=== PATIENT | female | born 1960 | race Caucasian/White ===

== ENCOUNTER 2017-03-26 10:01 | Emergency (ER) | payer BC ==
[2017-03-26] MEDS ORDERED: NS 0.9% 1000 ML* 1,000 ML IV ONE (11:05)
[2017-03-26] MEDS ORDERED: Morphine INJ* 4 MG/ML 1 ML CARPUJECT IV ONE ×2 (11:30→13:28)
[2017-03-26] MEDS ORDERED: Ondansetron INJ* 2 MG/ML VIAL IV ONE ×2 (11:31→13:28)
[2017-03-26 11:35] LABS: ABS Basophils 0.1 10^3/ul (0-0.2); ABS Eosinophils 0.2 10^3/ul (0-0.6); ABS Lymphocytes 1.3 10^3/ul (1.0-4.8); ABS Monocytes 0.6 10^3/ul (0-0.8); ABS Neutrophils 4.9 10^3/ul (1.5-7.7); ABS Nucleated RBC 0 10^3/ul; Eosinophil % 2.6 % (0-6); Hematocrit 41 % (35-47); Hemoglobin 13.9 g/dl (12.0-16.0); Lymphocyte % 18.3 % (25-47); Mean Corpuscular HGB Conc 34 g/dl (31-36); Mean Corpuscular Hemoglobin 28 pg (27-31); Mean Corpuscular Volume 82 fL (80-97); Mean Platelet Volume 9 um3 (7.4-10.4); Nucleated Red Blood Cells % 0.1; Platelet Count 266 10^3/ul (150-450); Red Blood Count 4.97 10^6/ul (4.0-5.4); Red Cell Distribution Width 13 % (10.5-15)
[2017-03-26 11:43] LABS: INR 0.99 (0.77-1.02)
[2017-03-26 11:54] LABS: EGFR Non-African American 71.6 (>60)
--- NOTE | 2017-03-26 12:30 | RAD ---
Indication: Right upper quadrant pain. Real-time sonography of the right upper quadrant was performed. The liver is normal in size. No focal lesions or intrahepatic duct dilatation is noted. The gallbladder demonstrates a small nonshadowing echogenic foci thigh in a nondependent portion of the gallbladder measuring 6 mm likely representing a small cholesterol polyp. No pericholecystic fluid or wall thickening is noted. Common duct measures 5 mm. Right kidney measures 10.1 x 5.3 x 4.7 cm. The visualized pancreas is otherwise unremarkable. IMPRESSION: Probable polyp in the gallbladder neck. No evidence of biliary duct dilatation is noted.
[2017-03-26 14:01] LABS: Urine Appearance Clear; Urine Blood Negative (Negative); Urine Color Yellow; Urine Ketones Negative (Negative); Urine Protein Negative (Negative); Urine Urobilinogen Negative (Negative)
[2017-03-26 14:48] VITALS: BP 126/69
--- NOTE | 2017-03-27 00:03 | CONS ---
CC: Antonio Delarosa MD CONSULTATION REPORT: DATE OF CONSULTATION: 03/26/17 CHIEF COMPLAINT: Abdominal pain. HISTORY OF PRESENT ILLNESS: The patient is a 56-year-old female who was awakened from sleep around 5 :30 this morning with intense right upper quadrant abdominal pain. It is also in the epigastrium and goes through to the back. She has never had anything like this before. She had may be some queasin ess. No nausea. No vomiting. No fever. No chills. No change in the stool or urine. No recent ac cident, injury, or trauma. PAST MEDICAL HISTORY: She is usually reasonably healthy with no chronic illnesses. PAST SURGICAL HISTORY: She has not had previous major surgeries. MEDICATIONS: Her only medication is hormone replacement therapy. ALLERGIES: She denies medical allergies. SOCIAL HISTORY: She is here with her . She is a nonsmoker, occasional drinker. She is curre ntly between jobs, but has worked in [employer]. FAMILY HISTORY: Reveals ovarian cancer in the sister. No bleeding tendencies or anesthesia reaction s. She has no gallbladder problems. REVIEW OF SYSTEMS: Multi system review is benign. No chest pain, angina, or irregular heartbeat. N o emphysema or bronchitis. No previous kidney stones or chronic urinary problems. No hepatitis or j aundice. No diabetes, thyroid or other endocrine. No Crohn's disease, colitis, or other bowel histo ry. No peptic ulcer disease. No major gynecologic history. No neuromuscular psych issues. PHYSICAL EXAMINATION: She is well-developed, well-nourished female consistent with stated age. Skin is warm and perfused. She is not diaphoretic. She is not jaundiced. Neck is without any adenopath y. Lungs are clear bilaterally. Breasts exam is deferred. Heart is regular without any abnormal so unds. Abdomen is soft and tender in the right subcostal region with a mild Veloz sign. No guarding . No rebound tenderness. No palpable masses or hernias. Extremities are well perfused and without edema. LABORATORY DATA/DIAGNOSTIC STUDIES: Laboratory studies revealed normal white blood count, normal hem oglobin, normal platelet count, normal coagulation. Electrolytes, creatinine, liver function, and li pase were all normal. Urinalysis normal. Her gallbladder ultrasound shows a 6 mm cholesterol polyp in the gallbladder, no acute inflammatory c hange, no ductal dilatation. IMPRESSION: A 56-year-old female with signs and symptoms consistent with biliary colic. I discussed this at length with her and with her and she thinks she would like to try to go h ome and there is nothing in her chemistries or her exam that make that problematic. I have given my card and she understands that if this attack does not resolve or should she start to develop fever or change in color of stool or urine, she should give me a call and we may need to see her back urgentl y. Otherwise, she can follow up in the office electively. Furthermore, if the attack abates quickly and she has no further attacks given that this is a one time event and there is nothing very impressi ve on her chemistries, we could defer surgery and see whether she can control it with diet. All of t cecilir questions have been answered and she will call us if she has any questions or concerns. [id number]/[facility] #: [id number]
== END 2017-03-26 14:57 | disposition home or self-care (01) ==
LOC: ED 10:01
DX: R10.9 Unspecified abdominal pain (principal); K80.50 Calculus of bile duct without cholangitis or cholecystitis without obstruction
CPT/HCPCS: 36415; 76705; 80053; 81003; 81015; 82150; 82550; 83605; 83690; 83735; 83880; 84484; 85025; 85610; 85730; 86140; 87086; 93005; 96374; 96375; 99283; J2270; J2405

== ENCOUNTER 2017-04-21 06:04 | Day surgery (SDC) | payer BC ==
[~2017-04-21 06:04] MED LIST: Buffered Lidocaine 0.9% SYRIN* 5 ML/SYR SYRINGE INTRADERM ONE; Famotidine IV* 10 MG/ML 2 ML (20 mg) IV ONE; Metoclopramide TAB* 10 MG PO ONE
[2017-04-21] MEDS ORDERED: Metoclopramide TAB* 10 MG ONE (06:17)
[2017-04-21] MEDS ORDERED: ceFAZolin 2 GM PREMIX (*) 2 GM/50 ML BAG IVPB ONE (06:17)
[2017-04-21] MEDS ORDERED: Famotidine IV* 10 MG/ML 2 ML (20 mg) ONE (06:17)
[2017-04-21] MEDS ORDERED: Ketorolac INJ* 30 MG/ML 1 ML VIAL ONE ×2 (06:17→07:19)
[2017-04-21] MEDS ORDERED: Buffered Lidocaine 0.9% SYRIN* 5 ML/SYR SYRINGE ONE (06:18)
[2017-04-21] MEDS ORDERED: Bupivacaine 0.25% SDV* 30 ML ONE (07:11)
[2017-04-21] MEDS ORDERED: Lidocaine 2% PF * 5 ML VIAL ONE (07:19)
[2017-04-21] MEDS ORDERED: Propofol* 10 MG/ML 20 ML BTL IV PUSH ONE (07:19)
[2017-04-21] MEDS ORDERED: fentaNYL* 50 MCG/ML 2 ML VIAL (100 MCG VIAL) ONE ×2 (07:19→09:20)
[2017-04-21] MEDS ORDERED: Dexamethasone IV* 4 MG/ML 1 ML (4 MG) ONE (07:19)
[2017-04-21] MEDS ORDERED: Cisatracurium* 2 MG/ML MDV 5 ML ONE (07:19)
[2017-04-21] MEDS ORDERED: Ondansetron INJ* 2 MG/ML VIAL ONE (07:19)
[2017-04-21] MEDS ORDERED: Midazolam* 1 MG/ML 10 ML VIAL (10 MG) ONE (07:19)
[2017-04-21] MEDS ORDERED: EPHEDrine (Pressors)* 50 MG/ML VIAL ONE ×2 (07:54→09:31)
[2017-04-21] MEDS ORDERED: Scopolamine 1.5 mg* PATCH TRANSDERM PRN (08:20)
[2017-04-21] MEDS ORDERED: Ondansetron INJ* 2 MG/ML VIAL IV PRN (08:20)
[2017-04-21] MEDS ORDERED: Naloxone* 0.4 MG/ML 1 ML VIAL IV PRN (08:20)
[2017-04-21] MEDS ORDERED: oxyCODONE/Acetamin 5/325 MG* TAB PO PRN ×2 (08:20→09:07)
[2017-04-21] MEDS ORDERED: Glycopyrrolate IV* 0.2 MG/ML 1 ML VIAL ONE (08:24)
[2017-04-21] MEDS ORDERED: Neostigmine Methylsulfate* 2 MG/2 ML SYRINGE ONE (08:24)
[2017-04-21] MEDS ORDERED: oxyCODONE/Acetamin 5/325 MG* TAB ONE (09:20)
[2017-04-21] MEDS: fentaNYL* 50 MCG/ML 2 ML VIAL (100 MCG VIAL) IV PRN ×2 (09:22→09:31)
[2017-04-21 10:27] VITALS: BP 137/66
--- NOTE | 2017-04-22 07:43 | OP ---
CC: Antonio Delarosa MD. OPERATIVE REPORT: DATE OF OPERATION: 04/21/17 DATE OF : 56 SURGEON: Antonio Delarosa MD. HELP DESK SUPERVISOR: SHAMIR Rose. ANESTHESIOLOGIST: Dr. Lemos. ANESTHESIA: General anesthetic, local infiltration. PRE-OP DIAGNOSIS: Biliary colic. POST-OP DIAGNOSIS: Biliary colic. OPERATIVE PROCEDURE: Laparoscopic cholecystectomy. DESCRIPTION OF PROCEDURE: The patient was supine on the operating room table. After adequate general anesthetic, compression stockings, Ai Hugger warmer and intravenous antibiotics, the abdomen was p repped with antiseptic, draped in sterile fashion. Local infiltrative anesthesia was administered. Small umbilical incision was created. Blunt port cannula was placed. Insufflation was carried out w ith carbon dioxide, additional cannulae 12 mm subxiphoid and 5 mm right upper quadrant right anterior axillary was placed through small stab wounds under direct vision. The gallbladder was tented up, th e areolar tissue was taken down off the cystic duct and cystic artery which were readily clipped and divided. The common duct was readily identified and kept out of harm's way. The gallbladder was ileana en off the liver bed with electrocautery. Hemostasis was excellent. The gallbladder was removed thr ough the subxiphoid port without spillage. Everything was in excellent condition. The pneumoperiton eum was allowed to escape. The umbilical fascia was closed with 0 Vicryls, skin was closed with 5-0 Vicryl followed by Steri-Strips. She tolerated the procedure well, was awakened and brought to [facility] in good condition. No complications. No drains. Pathologic specimen is gallbladder. Sponge and instrument counts correct. Estimated blood less 10 mL. [id number]/[facility] #: [id number]
[2017-04-24] MEDS ORDERED: Scopolamine PATCH Remove* 1 NOTE MISC PATCH OFF ONE (08:20)
== END 2017-04-21 10:35 | disposition home or self-care (01) ==
LOC: OR 06:04
PROVIDERS: ATTEND Surgery
DX: K81.1 Chronic cholecystitis (principal); Z87.891 Personal history of nicotine dependence; R10.11 Right upper quadrant pain
CPT/HCPCS: 88304; A9270-GY; J0690; J1100; J1885; J2250; J2405; J2704; J3010